=== PATIENT | male | born 1960 | race Caucasian/White ===

== ENCOUNTER 2018-05-31 14:20 | Emergency (ER) ==
[2018-05-31 14:31] VITALS: BP 70/37; TEMP 97.6; BMI 21.7
[2018-05-31] MEDS ORDERED: SODIUM CHLORIDE 1,000 ML IV STA (14:56)
--- NOTE | 2018-05-31 16:28 | MRI ---
EXAM: Brain MRI without contrast. HISTORY: Dizziness. Brain mass. COMPARISON: Head CT 05/10 2018, head CT 10/07/2016 and brain MRI 04/26/2018 and 10/31/2016. TECHNIQUE: Multiplanar, multisequence MR images were acquired of the brain without contrast. FINDINGS: The midline structures are central and the craniocervical junction is unremarkable. The v entricles and sulci are generally mildly prominent compatible with normal age related involutional ch anges. There are stable to improved postoperative changes of a right frontotemporal craniotomy and partial r esection of a right sphenoid wing extra-axial mass. There is a small 1.4 cm AP by 2.8 cm TX by 2.8 c m CC resection cavity in the anterior right middle cranial fossa and there is hyperintense T2 signal gliosis in the adjacent anterior right temporal lobe that extends posteriorly to the right temporal h orn of the lateral ventricle and superiorly into the anterior inferior right frontal lobe at the oper culum.. There is ex vacuo enlargement of the right temporal horn. There is a residual 2 cm AP by 2. 1 cm TX by 2.3 cm CC intermediate T1, intermediate to dark T2 signal extra-axial mass arising from t he lateral margin of the right anterior clinoid and wall of the anteromedial right middle cranial fos sa. This mass has dark gradient echo signal consistent with micro calcifications and is consistent w ith a meningioma. Contrast was not administered. The meningioma compresses and mildly elevates the in feromedial right frontal lobe and inferior right basal ganglia and produces posterior bowing of the r ight middle cerebral artery M1 segment with mild narrowing of the flow void. The mass produces hyperi ntense T2 signal edema in the anterior right frontal lobe and anterior right external capsule and sub insular white matter tracts that extends 5 cm superiorly from the bottom of the right frontal lobe a nd inferior right basal ganglia to the top of the right frontal horn of the lateral ventricle and int o the right frontal periventricular white matter, right anterior anderson radiata and anterior and mid right subinsular white matter tracts and external capsule. Compared the previous MRI, edema has impro luis in the right frontal lobe and subinsular white matter tracts. There is no diffusion restriction to suggest acute hypoperfusion or infarction. The corpus callosum is normal. The pituitary gland is small. There are no intraorbital masses. The frontal sinus is hypoplastic. Minor scattered mucosal thicken ing is present in the ethmoid air cells and there is undulation of the nasal septum with minor polypo id mucosal thickening. Remainder the paranasal sinuses, middle ears and mastoids are unremarkable. Flow voids are present in the major intracranial arteries and dural venous sinuses. Degenerative spon dylosis is present in the upper cervical spine which is incompletely characterized. IMPRESSION: 1. 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 There is a stable small resection cavity in the anterior right fron mynor lobe and stable residual 2 cm AP by 2.1 cm TX by 2.3 cm CC right sphenoid wing meningioma. 2. The right sphenoid wing/anterior clinoid meningioma compresses and elevates the inferior right fr ontal lobe and inferior right basal ganglia which has hyperintense T2 signal edema which has mildly i mproved in the anterior right frontal lobe and anterior right subinsular white matter tracts. 3. No hydrocephalus or acute cerebral infarct.
--- NOTE | 2018-05-31 17:51 | ED.PDOC ---
General ED Provider: Dr. PETE WALLER Chief Complaint: Dizziness Stated Complaint: DIZZINESS Time Seen by Physician: 14:21 (SEEN WITH ROBB CARTER .STATED HE HAS A BRAIN MASS DUE TO TRANSPORTATIONPROBLEM HE HAS BEEN UNABLE TO FOLLOW UP WITH [facility] ) Mode of Arrival: Wheelchair Information Source: Patient Exam Limitations: Other (PT IS REFUSING TO WALK HE STATED HE IS UNABLE TO DO SO , WOULD NOT ALLOW OCCULAR REFLEX EXAM STATED LIGHT BOTHER"s his eyes ) Referred to ED by: Other (SELF. AFTER HE CONTACTED KAREN/PIETER EWING ) Nursing and Triage Documentation Reviewed and Agree: Yes Does patient meet sepsis criteria?: No If yes, has appropriate treatment been initiated?: No System Inflammatory Response Syndrome: Not Applicable Sepsis Protocol: For patient's 13 years and over: Temp is 96.8 and below OR 101 and greater Pulse >90 BPM Resp >20/minute Acutely Altered Mental Status Are patient's symptoms suggestive of a new infection, such as: -Pneumonia -Skin, Soft Tissue -Endocarditis -UTI -Bone, Joint Infection -Implantable Device -Acute Abdominal Infection -Wound Infection -Meningitis -Blood Stream Catheter Infection -Unknown Neurological Complaint Exam - Dizziness Complaint/Exam Last Known Well: last week Onset: Gradual Duration: about 1 week Symptoms Are: Still present Timing: Intermittent Episodes Lasting: Days Initial Severity: Moderate Current Severity: Mild Character: Reports: Lightheaded, Weak, Dizzy Aggravating: Reports: Position change, Change in head position Alleviating: Reports: None Associated Signs and Symptoms: Denies: Nausea, Vomiting, Diaphoresis, Tinnitus, Chest pain, Short of air, Palpitations, Unsteady gait, GI blood loss, Visual changes, Decreased oral intake, Change in medication, Change in diet, OTC meds, Loss of balance Related History: Similar episode Cardiac Risk Factors: Reports: Hypertension, Smoking CVA Risk Factors: Reports: Hypertension, Smoking Related Surgical History: Reports: None JVD Present: No Carotid Bruit Present: No Glascow Coma Scale (see protocol): 15 Nystagmus Present: No Gag Reflex Present: Yes Meningeal Signs Positive: No Focal Weakness: Present: None Focal Sensory Loss: Present: None Gait: Normal [id number]: Normal Findings Babinski Sign: Negative Right, Negative Left Heel to Toe Normal: No (UNABLE ) Differential Diagnoses: Hypovolemia, Labyrinthitis, Meniere's, Metabolic abnormalities Quality Indicators for Cardiac Chest Pain: EKG in 10min. Quality Indicators for AMI: EKG in 10min. Quality Indicator For Non-Traumatic Chest Pain/Syncope: EKG Performed Review of Systems - Review Of Systems Constitutional: Reports: No symptoms Eyes: Reports: No symptoms Ears, Nose, Mouth, Throat: Reports: No symptoms Respiratory: Reports: No symptoms Cardiac: Reports: No symptoms GI: Reports: No symptoms : Reports: No symptoms Musculoskeletal: Reports: No symptoms Skin: Reports: No symptoms Neurological: Reports: Other (dizziness ) Endocrine: Reports: No symptoms Hematologic/Lymphatic: Reports: No symptoms All Other Systems: Reviewed and Negative Past Medical History - Past Medical History Previously Healthy: Yes Endocrine: Reports: None Cardiovascular: Reports: None Respiratory: Reports: None Hematological: Reports: None Gastrointestinal: Reports: None Genitourinary: Reports: None Neuro/Psych: Reports: None Musculoskeletal: Reports: None Cancer: Reports: None - Surgical History General Surgical History: Reports: None - Family History Family History: Reports: None - Social History Smoking Status: Current every day smoker, Heavy tobacco smoker Hx Substance Use: Yes (occ marijuana) Alcohol Screening: None Physical Exam - Physical Exam Appearance: Well-appearing, No pain distress, Well-nourished Eyes: NURIA, EOMI, Conjunctiva clear ENT: Ears normal, Nose normal, Oropharynx normal Respiratory: Airway patent, Breath sounds clear, Breath sounds equal, Respirations nonlabored Cardiovascular: RRR, Pulses normal, No rub, No murmur GI/: Soft, Nontender, No masses, Bowel sounds normal, No Organomegaly Musculoskeletal: Normal strength, ROM intact, No edema, No calf tenderness Skin: Warm, Dry, Normal color Neurological: Sensation intact, Motor intact, Reflexes intact, Cranial nerves intact, Alert, Oriented Psychiatric: Affect appropriate, Mood appropriate - NIH Stroke Scale 1a. Level of Consciousness: 0=Alert and keenly responsive 1b. Level of Consciousness Questions: 0=Answers correctly to two questions 3. Visual: 0=No visual loss 4. Facial Palsy: 0=Normal 5a. Motor Left Arm: 0=No drift,arm holds 90 degrees for 10 sec., leg 30 degrees for 5 sec. 5b. Motor Right Arm: 0=No drift,arm holds 90 degrees for 10 sec., leg 30 degrees for 5 sec. 6a. Motor Left Le=No drift,arm holds 90 degrees for 10 sec., leg 30 degrees for 5 sec. 6b. Motor Right Le=No drift,arm holds 90 degrees for 10 sec., leg 30 degrees for 5 sec. 7. Limb Ataxia: 0=Absent 8. Sensory: 0=Normal 9. Best Language: 0=No aphasia 10. Dysarthria: 0=Normal 11. Extincion and Inattention: 0=Normal Stroke Scale Total: 0 Interpretation - Radiology Interpretation Radiology Interpretation By: Radiologist Radiology Results: Positive (brain mass) Re-Evaluation - Re-Evaluation Time of Re-Evaluation: 17:55 Status: Improved Vital Signs Stable: Yes Pain Level: 0 Appearance: NAD Lungs: Clear Skin: Warm and Dry Neuro: Alert and Oriented X3 CV: RRR Additional Comments: neuro nonefocal refused to walk NO MOTOR OR SENSORY DEFICITS NOTED - Re-Evaluation Time of Re-Evaluation: 19:00 Status: Unchanged Vital Signs Stable: Yes Pain Level: 0 Appearance: NAD Skin: Warm and Dry Neuro: Alert and Oriented X3 CV: RRR (TRANSFER AND DISCUSSION WITH COVERING DOCTOR WITH DOCTOR ADAMS DISCUSSED . NEURO EXAM NONEFOCAL POSTIONAL DIZZINESS PERSIST) Physician Notification - Case Discussed Physician Notified: [place] Time of Notification: 17:53 (Transfer to [facility] ED) Physician Notified: Mandeep Time of Notification: 18:30 (Transfer to [facility] ED ) Critical Care Note - Critical Care Note Total Time (mins): 0 Course - Course Hematology/Chemistry: 05/31/18 16:01 05/31/18 16:01 Orders, Labs, Meds: Lab Review 05/31/18 05/31/18 05/31/18 16:01 16:01 16:01 WBC 7.95 RBC 4.05 L Hgb 13.2 L Hct 39.0 L MCV 96.3 H MCH 32.6 H MCHC 33.8 RDW Coeff of Jakub 13.5 Plt Count 302 Immature Gran % (Auto) 0.3 Neut % (Auto) 64.8 Lymph % (Auto) 24.4 Edgar % (Auto) 7.9 Eos % (Auto) 1.8 Baso % (Auto) 0.8 Immature Gran # (Auto) 0.0 Neut # (Auto) 5.2 Lymph # (Auto) 1.9 Edgar # (Auto) 0.6 Eos # (Auto) 0.1 Baso # (Auto) 0.1 Sodium 137.9 Potassium 2.95 L Chloride 98.1 Carbon Dioxide 35.3 H Anion Gap 7.45 BUN 25.8 H Creatinine 1.30 H Estimated GFR (MDRD) 57.00 BUN/Creatinine Ratio 19.84 Glucose 112.2 H Lactic Acid 2.15 H Calcium 9.21 Total Bilirubin 0.61 AST 24.2 ALT 35.1 Alkaline Phosphatase 151.0 H Total Creatine Kinase 52.4 L Troponin I 0.026 Total Protein 6.63 Albumin 4.04 Globulin 2.59 Albumin/Globulin Ratio 1.55 Procalcitonin 05/31/18 16:01 WBC RBC Hgb Hct MCV MCH MCHC RDW Coeff of Jakub Plt Count Immature Gran % (Auto) Neut % (Auto) Lymph % (Auto) Edgar % (Auto) Eos % (Auto) Baso % (Auto) Immature Gran # (Auto) Neut # (Auto) Lymph # (Auto) Edgar # (Auto) Eos # (Auto) Baso # (Auto) Sodium Potassium Chloride Carbon Dioxide Anion Gap BUN Creatinine Estimated GFR (MDRD) BUN/Creatinine Ratio Glucose Lactic Acid Calcium Total Bilirubin AST ALT Alkaline Phosphatase Total Creatine Kinase Troponin I Total Protein Albumin Globulin Albumin/Globulin Ratio Procalcitonin < 0.05 Orders Category Date Time Status EKG-(ED ONLY) Stat CARDIO 05/31/18 14:48 Completed ED IV/MEDIPORT/POWERPORT .ONCE EMERGENCY 05/31/18 14:48 Active BLOOD CULTURE (ED ONLY) Stat LAB 05/31/18 16:01 Results CBC W/ AUTO DIFF Stat LAB 05/31/18 16:01 Completed COMPREHENSIVE METABOLIC PANEL Stat LAB 05/31/18 16:01 Completed CREATINE KINASE Stat LAB 05/31/18 16:01 Completed LACTIC ACID Stat LAB 05/31/18 16:01 Completed PROCALCITONIN Stat LAB 05/31/18 16:01 Completed TROPONIN I Stat LAB 05/31/18 16:01 Completed 0.9 % Sodium Chloride [Saline Flush] MEDS 05/31/18 14:48 Discontinued 1 syr IVF PRN PRN Sodium Chloride 0.9% [Sodium Chloride] 1,000 ml MEDS 05/31/18 14:56 Discontinued IV BOLUS MRI BRAIN W/O CONTRAST Stat RADS 05/31/18 14:47 Completed Medications Discontinued Medications Generic Name Dose Route Start Last Admin Trade Name Freq PRN Reason Stop Dose Admin Sodium Chloride 1,000 mls @ 1,000 mls/hr 05/31/18 14:56 05/31/18 16:01 Sodium Chloride IV 05/31/18 15:55 1,000 mls/hr BOLUS STA Administration Sodium Chloride 1 syr 05/31/18 14:48 Saline Flush IVF PRN PRN To flush IV Vital Signs: Temp Pulse Resp BP Pulse Ox 05/31/18 14:21 97.6 F 104 H 20 70/37 L 95 Departure - Departure Time of Disposition: 17:53 (recheck neuro nonefocal) Disposition: TSF SHORT-TRM HOSP Discharge Problem: Dizziness, Meningioma Instructions: Brain Tumors (DC) Condition: Good Pt referred to PMD for follow-up: Yes IPMP verified?: No Additional Instructions: Please call your Family Physician as soon as possible to schedule a follow-up appointment. Allergies/Adverse Reactions: Allergies morphine Adverse Reaction (Verified 05/31/18 14:32) Penicillins Adverse Reaction (Verified 05/31/18 14:32) Home Medications: Ambulatory Orders Carbamazepine [Tegretol] 800 mg PO DAILY 05/31/18 Gabapentin 800 mg PO DIRECTED 05/31/18 Lisinopril [Zestril] 5 mg PO DAILY 05/31/18 Disposition Discussed With: Patient, Family
== END 2018-05-31 20:05 | disposition short-term general hospital (02) ==
LOC: ED 14:20
DX: D32.0 Benign neoplasm of cerebral meninges (principal); R42 Dizziness and giddiness; R53.1 Weakness; I10 Essential (primary) hypertension; F17.210 Nicotine dependence, cigarettes, uncomplicated
CPT/HCPCS: 36415; 80053; 82550; 83605; 84145; 84484; 85025; 87040; 93005; 93010; 96360; 99285